=== PATIENT | female | born 1950 ===

== ENCOUNTER 2017-09-28 10:11 | Emergency (ER) | payer MEDICARE ==
[2017-09-28 10:11] VITALS: BMI 28.3
[2017-09-28 10:17] VITALS: RESP 18; TEMP 98.6; O2SAT 96
--- NOTE | 2017-09-28 11:05 | ED PDOC ---
HPI: Female Pain Time Seen by Provider: 09/28/17 10:22 Chief Complaint (Nursing): Female Genitourinary Chief Complaint (Provider): Pyelonephritis History Per: Patient Additional Complaint(s): 67 yo female, PMH of High Cholesterol, presents to ED with complaints of lower abdominal pain, radiating to b/l flanks x 1 week now. Pt also notes burning on urination. No fever or chills, no episodes of vomiting. mild nausea reported. Past Medical History Reviewed: Nursing Documentation, Vital Signs Vital Signs: Last Vital Signs Temp 98.6 F 09/28/17 10:16 Pulse 95 H 09/28/17 10:16 Resp 18 09/28/17 10:16 BP 103/73 09/28/17 10:16 Pulse Ox 96 09/28/17 10:16 - Medical History PMH: Hypercholesterolemia - Surgical History Surgical History: Denies: Pacemaker - Family History Family History: States: Unknown Family Hx - Living Arrangements Living Arrangements: With Family - Social History Current smoker - smoking cessation education provided: No Alcohol: None Drugs: Denies - Home Medications Home Medications: Ambulatory Orders Medication Instructions Recorded Alendronate [Fosamax] 70 mg PO QWK 05/19/17 Atorvastatin [Lipitor] 20 mg PO DAILY 05/19/17 Clonazepam [Klonopin] 0.5 mg PO HS 05/19/17 Ranitidine HCl [Sunmark Acid 150 mg PO DAILY 05/19/17 Acute Dialysis Registered Nurse] traMADol [Ultram] 50 mg PO Q6 PRN 05/19/17 Cephalexin [cephalexin] 500 mg PO BID #20 cap 09/28/17 Fluconazole [Diflucan] 150 mg PO ACB #1 tab 09/28/17 Phenazopyridine HCl [Pyridium] 100 mg PO TID #6 tab 09/28/17 - Allergies Allergies/Adverse Reactions: Allergies Allergy/AdvReac Type Severity Reaction Status Date / Time No Known Allergies Allergy Verified 05/16/17 10:43 Review of Systems ROS Statement: Except As Marked, All Systems Reviewed And Found Negative Gastrointestinal: Positive for: Abdominal Pain Genitourinary Female: Positive for: Dysuria, Frequency Musculoskeletal: Positive for: Back Pain Physical Exam - Reviewed Nursing Documentation Reviewed: Yes Vital Signs Reviewed: Yes - Physical Exam Appears: Positive for: Well, Non-toxic, No Acute Distress Head Exam: Positive for: ATRAUMATIC, NORMAL INSPECTION, NORMOCEPHALIC Skin: Positive for: Normal Color, Warm, DRY Eye Exam: Positive for: EOMI, Normal appearance, PERRL ENT: Positive for: Normal ENT Inspection Neck: Positive for: Normal, Painless ROM Cardiovascular/Chest: Positive for: Regular Rate, Rhythm Respiratory: Positive for: CNT, Normal Breath Sounds Gastrointestinal/Abdominal: Positive for: Soft, Tenderness (suprapubic) Back: Positive for: L CVA Tenderness, R CVA Tenderness Extremity: Positive for: Normal ROM Neurologic/Psych: Positive for: Alert, Oriented - Laboratory Results Result Diagrams: 09/28/17 11:35 09/28/17 11:50 - ECG O2 Sat by Pulse Oximetry: 96 Medical Decision Making Medical Decision Making: IV access established and treatment initiated with Toradol and Zofran. IV Rocephin started after U.Dip (+) blood, leuks and nites. Labs resulted and reviewed with pt who reports feeling improved on re-eval. Pt remains afebrile. Stable for discharge with out Pt treatment at this time. Advised to return to ED if at anytime condition worsens Disposition - Clinical Impression Clinical Impression: Pyelonephritis - Patient ED Disposition Is Patient to be Admitted: No - Disposition Disposition: Routine/Home Disposition Time: 13:00 Condition: STABLE Prescriptions: Cephalexin [cephalexin] 500 mg PO BID #20 cap Fluconazole [Diflucan] 150 mg PO ACB #1 tab Phenazopyridine HCl [Pyridium] 100 mg PO TID #6 tab Instructions: Urinary Tract Infections in Adults, Kidney Infection Forms: [facility] ([place])
[2017-09-28] MEDS ORDERED: cefTRIAXone (Rocephin) 1 gm Inj ONE (11:38)
[2017-09-28 12:09] LABS: BASO % 0.2 % (0.0-2.0); EOS % 0.5 % (0.0-4.0); LYMPH # 1.5 K/uL (1.0-4.3); LYMPH % 15.7 % (20.0-40.0); MEAN CELL VOLUME 92.7 fl (81.0-99.0); MEAN CORPUSCULAR HGB CONC 33.5 g/dL (33.0-37.0); MEAN PLATELET VOLUME 8.4 fl (7.2-11.7); MONO # 0.7 K/uL (0.0-0.8); MONO % 7.1 % (0.0-10.0); NEUT # 7.3 K/uL (1.8-7.0); NEUT % 76.5 % (50.0-75.0); RBC 4.53 Mil/uL (3.80-5.20); RED CELL DISTRIBUTION WIDTH 13.3 % (11.5-14.5); WHITE BLOOD COUNT 9.5 K/uL (4.8-10.8)
[2017-09-28 12:28] LABS: URINE BACTERIA MANY (<OCC); URINE BILIRUBIN NEGATIVE (NEGATIVE); URINE BLOOD LARGE (NEGATIVE); URINE CLARITY TURBID (Clear); URINE COLOR YELLOW (YELLOW); URINE GLUCOSE (UA) NEG (Normal); URINE LEUKOCYTE ESTERASE LARGE Leu/uL (Negative); URINE PROTEIN 100 mg/dL (NEGATIVE); URINE UROBILINOGEN 0.2-1.0 mg/dL (0.2-1.0)
[2017-09-28 12:43] LABS: ALB/GLOB RATIO 1.2 (1.0-2.1); ALBUMIN 4.3 g/dL (3.5-5.0); ALT/SGPT 28 U/L (9-52); AST/SGOT 44 U/L (14-36); BLOOD UREA NITROGEN 10 mg/dl (7-17); CALCIUM 9.2 mg/dL (8.4-10.2); GFR AFRICAN-AMERICAN > 60; GFR NON-AFRICAN AMERICAN > 60
[2017-09-28 15:17] VITALS: BP 100/70; PULSE 90
== END 2017-09-28 14:50 | disposition home or self-care (01) ==
LOC: H.ER 10:11
DX: N12 Tubulo-interstitial nephritis, not specified as acute or chronic (principal); E78.00 Pure hypercholesterolemia, unspecified
CPT/HCPCS: 80053; 81003; 85025; 87086; 87181; 96374; 96375; 99284; J0696; J1885; J2405